=== PATIENT | female | born 2000 | race Caucasian/White ===

== ENCOUNTER → 2024-12-01 | Outpatient (CLI) | payer OTHER | LOC: M RAD 15:25 | PROVIDERS: ATTEND Advanced Practice Midwife | DX: R51.9 Headache, unspecified (principal); R03.0 Elevated blood-pressure reading, without diagnosis of hypertension ==

== ENCOUNTER 2024-12-18 22:40 | Emergency (ER) | payer OTHER ==
[~2024-12-18] VITALS: Ht 170.2 cm; Wt 83.0 kg
[2024-12-19 01:05] LABS: BASO % 0.3 % (0.0-1.0); EOS # 0.1 10^3/uL (0.0-0.5); EOS % 0.5 % (0.0-3.0); HEMATOCRIT 41.1 % (36.0-47.0); HEMOGLOBIN 13.9 g/dl (12.0-15.5); LYMPH % 16.4 % (24.0-44.0); MEAN CORPUSCULAR HEMOGLOBIN 30.5 pg (27.0-33.0); MEAN CORPUSCULAR HGB CONC 33.8 g/dl (32.0-36.5); MEAN CORPUSCULAR VOLUME 90.1 fl (80.0-96.0); MONO # 0.6 10^3/uL (0.0-0.8); MONO % 4.6 % (2.0-8.0); NEUTROPHILS # 9.6 10^3/uL (1.5-8.5); NEUTROPHILS % 77.5 % (36.0-66.0); PLATELET COUNT, AUTOMATED 367 10^3/uL (150-450); RED BLOOD COUNT 4.56 10^6/uL (4.00-5.40); WHITE BLOOD COUNT 12.4 10^3/uL (4.0-10.0)
[2024-12-19 01:21] LABS: LIPASE 34 U/L (12-53)
[2024-12-19 01:22] LABS: CK-MB VALUE MASS < 1.0 NG/ML (<3.6)
[2024-12-19 01:24] LABS: ALBUMIN 3.4 G/DL (3.2-5.2); ALKALINE PHOSPHATASE 43 U/L (35-104); ALT/SGPT 17 U/L (7.0-40); AST/SGOT 14 U/L (<34); BILIRUBIN,DIRECT < 0.1 MG/DL (<0.4); BILIRUBIN,TOTAL 0.3 MG/DL (0.3-1.2); BLOOD UREA NITROGEN 12 MG/DL (9-23); CALCIUM LEVEL 9.8 MG/DL (8.5-10.1); CARBON DIOXIDE LEVEL 22 MMOL/L (20-31); CHLORIDE LEVEL 106 MMOL/L (98-107); CREATININE FOR GFR 0.56 MG/DL (0.55-1.30); GLOMERULAR FILTRATION RATE > 60.0 (>60); GLUCOSE, FASTING 86 MG/DL (60-100); POTASSIUM SERUM 3.9 MMOL/L (3.5-5.1); SODIUM LEVEL 138 MMOL/L (136-145); TOTAL PROTEIN 6.8 G/DL (5.7-8.2)
[2024-12-19 01:25] LABS: THYROID STIMULATING HORMONE 3.033 uIU/ML (0.55-4.78)
[2024-12-19 01:29] LABS: CPK CREATINE PHOSPHOKINASE 55 U/L (34-145); MB/CK RELATIVE INDEX 1.81 (< OR =4)
[2024-12-19] MEDS ORDERED: NIFE60TA96 (03:47)
[2024-12-19] MEDS: NS (Normal Saline) 0.9% 1,000 ML IV ONE (05:48)
[2024-12-19 05:55] LABS: MAGNESIUM LEVEL 1.7 MG/DL (1.8-2.4)
[2024-12-19 05:59] LABS: APPEARANCE, URINE HAZY (CLEAR); BACTERIA, URINE AUTO 3+ (NEGATIVE); BILIRUBIN, URINE AUTO NEGATIVE (NEGATIVE); BLOOD, URINE BLOOD NEGATIVE (NEGATIVE); COLOR, URINE YELLOW (YELLOW); GLUCOSE, URINE (UA) AUTO NEGATIVE (NEGATIVE); KETONE, URINE AUTO NEGATIVE (NEGATIVE); LEUKOCYTE ESTERASE, URINE AUTO NEGATIVE (NEGATIVE); NITRITE, URINE AUTO NEGATIVE (NEGATIVE); PROTEIN, URINE AUTO NEGATIVE (NEGATIVE); RBC, URINE AUTO 0 /HPF (0-3); SPECIFIC GRAVITY URINE AUTO 1.008 (1.002-1.035); SQUAMOUS EPITHELIAL CELL UR AU 1 /HPF (0-6); UROBILINOGEN, URINE AUTO 0.2 mg/dL (0.0-2.0); WBC, URINE AUTO 1 /HPF (0-3)
[2024-12-19 06:00] LABS: URIC ACID 4.1 MG/DL (3.1-7.8)
[2024-12-19] MEDS ORDERED: HOLTER MONITOR XX (06:20)
[2024-12-19 06:30] VITALS: BP 102/53; TEMP 97.5; O2SAT 98
[2024-12-19] MEDS: MAGNESIUM OXIDE 400MG TAB (MAG-OX) PO ONE (06:34)
== END 2024-12-19 06:46 | disposition home or self-care (01) ==
LOC: M ED 22:40
DX: R00.2 Palpitations (principal); G43.909 Migraine, unspecified, not intractable, without status migrainosus

== ENCOUNTER 2024-12-18 22:56 | Outpatient (CLI) | payer OTHER ==
[~2024-12-18] VITALS: Ht 170.2 cm; Wt 83.9 kg
[2024-12-18 23:34] VITALS: BP 132/63
[2024-12-19] MEDS ORDERED: NIFE60TA96 (03:47)
[2024-12-19] MEDS ORDERED: HOLTER MONITOR XX (06:20)
== END 2024-12-18 23:46 | disposition home or self-care (01) ==
LOC: M LDO 22:56
PROVIDERS: ATTEND Obstetrics & Gynecology
DX: O10.02 Pre-existing essential hypertension complicating childbirth (principal); Z3A.20 20 weeks gestation of pregnancy; O26.892 Other specified pregnancy related conditions, second trimester; R00.2 Palpitations; Z79.899 Other long term (current) drug therapy
CPT/HCPCS: 59025; G0463

== ENCOUNTER → 2024-12-22 | Outpatient (CLI) | payer OTHER ==
[~2024-12-22] MED LIST: HOLTER MONITOR XX; NIFE60TA96
== END ==
LOC: M EKG 09:44
PROVIDERS: ATTEND Emergency Medicine
DX: R00.2 Palpitations (principal)

== ENCOUNTER 2025-01-11 21:24 | Emergency (ER) | payer OTHER ==
[~2025-01-11] VITALS: Ht 170.2 cm; Wt 86.3 kg
[2025-01-11 21:52] LABS: BASO % 0.2 % (0.0-1.0); EOS # 0.1 10^3/uL (0.0-0.5); HEMATOCRIT 39.8 % (36.0-47.0); HEMOGLOBIN 13.9 g/dl (12.0-15.5); LYMPH # 2.8 10^3/uL (1.5-5.0); LYMPH % 22.4 % (24.0-44.0); MEAN CORPUSCULAR HEMOGLOBIN 31.2 pg (27.0-33.0); MEAN CORPUSCULAR HGB CONC 34.9 g/dl (32.0-36.5); MEAN CORPUSCULAR VOLUME 89.4 fl (80.0-96.0); MONO # 0.5 10^3/uL (0.0-0.8); MONO % 4.3 % (2.0-8.0); NEUTROPHILS % 71.5 % (36.0-66.0); PLATELET COUNT, AUTOMATED 398 10^3/uL (150-450); RED BLOOD COUNT 4.45 10^6/uL (4.00-5.40); WHITE BLOOD COUNT 12.5 10^3/uL (4.0-10.0)
[2025-01-11 22:17] LABS: BLOOD UREA NITROGEN 14 MG/DL (9-23); CALCIUM LEVEL 9.5 MG/DL (8.5-10.1); CARBON DIOXIDE LEVEL 23 MMOL/L (20-31); CHLORIDE LEVEL 103 MMOL/L (98-107); CK-MB VALUE MASS < 1.0 NG/ML (<3.6); CPK CREATINE PHOSPHOKINASE 68 U/L (34-145); CREATININE FOR GFR 0.56 MG/DL (0.55-1.30); GLOMERULAR FILTRATION RATE > 60.0 (>60); GLUCOSE, FASTING 146 MG/DL (60-100); MAGNESIUM LEVEL 1.8 MG/DL (1.8-2.4); MB/CK RELATIVE INDEX 1.47 (< OR =4); POTASSIUM SERUM 3.5 MMOL/L (3.5-5.1); SODIUM LEVEL 138 MMOL/L (136-145)
[2025-01-11] MEDS: NS (Normal Saline) 0.9% 1,000 ML IV ONE (22:18)
[2025-01-11 23:16] VITALS: BP 125/83; TEMP 97.7; O2SAT 99
== END 2025-01-11 23:31 | disposition home or self-care (01) ==
LOC: M ED 21:24
DX: R00.2 Palpitations (principal); Z79.899 Other long term (current) drug therapy

== ENCOUNTER 2025-02-02 12:27 | Outpatient (CLI) | payer OTHER ==
[~2025-02-02] VITALS: Ht 170.2 cm; Wt 89.8 kg
[2025-02-02 12:45] VITALS: BP 152/71
[2025-02-02] MEDS ORDERED: ECOT81TA5 PO (12:56)
[2025-02-02] MEDS ORDERED: HOME MED LIST COMPLETE! XX SCH (13:00)
[2025-02-02 13:05] VITALS: BP 129/78
[2025-02-02 13:15] VITALS: BP 129/67
== END 2025-02-02 13:55 | disposition home or self-care (01) ==
LOC: M LDO 12:27
PROVIDERS: ATTEND Obstetrics & Gynecology
DX: O36.8120 Decreased fetal movements, second trimester, not applicable or unspecified (principal); O13.2 Gestational [pregnancy-induced] hypertension without significant proteinuria, second trimester; Z3A.26 26 weeks gestation of pregnancy
CPT/HCPCS: 59025; G0463

== ENCOUNTER 2025-03-23 13:55 | Outpatient (CLI) | payer OTHER ==
[~2025-03-23] VITALS: Ht 170.2 cm; Wt 95.1 kg
[~2025-03-23 13:55] MED LIST changes: +ECOT81TA5 PO
[2025-03-23 14:09] VITALS: BP 128/69
[2025-03-23] MEDS ORDERED: MAGN400T33 PO (14:16)
[2025-03-23] MEDS ORDERED: PRENTAB9 PO (14:16)
[2025-03-23] MEDS ORDERED: ACET-897 PO (14:16)
[2025-03-23 14:56] LABS: KETONE, URINE AUTO RFX NEGATIVE (NEGATIVE); LEUKOCYTE ESTERASE UR AUTO RFX NEGATIVE (NEGATIVE); NITRITE, URINE AUTO RFX NEGATIVE (NEGATIVE); RBC, URINE AUTO RFX 0 /HPF (0-3); SQUAM EPITHELIAL CELL UR AURFX 1 /HPF (0-6); WBC, URINE AUTO RFX 1 /HPF (0-3)
[2025-03-23 15:57] VITALS: BP 131/59
== END 2025-03-23 16:07 | disposition home or self-care (01) ==
LOC: M LDO 13:55
PROVIDERS: ATTEND Obstetrics & Gynecology
DX: O47.03 False labor before 37 completed weeks of gestation, third trimester (principal); O10.013 Pre-existing essential hypertension complicating pregnancy, third trimester; Z3A.33 33 weeks gestation of pregnancy
CPT/HCPCS: 59025; 81001; G0463